=== PATIENT | male | born 1965 | race Caucasian/White ===

== ENCOUNTER → 2022-12-01 | Outpatient (CLI) | payer OTHER ==
[2022-12-02 02:18] LABS: HCT 46.4 % (39.6-50.0); MCH 34.9 pg (27.0-32.0); MCHC 34.5 g/dL (32.0-37.0); MCV 101.1 fL (80.0-97.0); Mean Platelet Volume 11.3 fL (9.5-12.2); NRBC Per 100 WBC 0 /100 WBCS (0.0-0.0); Platelet Count 169 X 10*3/uL (140-440); RBC 4.59 X 10*6/uL (4.40-5.60); RDW 13.1 % (11.5-14.5); WBC 7.84 X 10*3/uL (4.50-10.00)
[2022-12-02 03:21] LABS: ALT 53 U/L (10-49); AST 103 U/L (14-35); African American GFR (CKD) 115.2 (60.0-200.0); Albumin 4.4 g/dL (3.8-4.9); Albumin/Globulin Ratio 1.24 (1.60-3.17); Alkaline Phosphatase 87 U/L (41-126); BUN/Creat Ratio 7.45 Ratio (12.00-20.00); Blood Urea Nitrogen 5.9 mg/dL (9.0-27.0); Calcium 9.3 mg/dL (8.7-10.3); Carbon Dioxide 26.9 mmol/L (20.0-27.5); Chloride 100 mmol/L (96-109); Chol/HDL Ratio 3.71 Ratio; Globulin 3.5 g/dL (1.6-3.3); Glucose 82 mg/dL (70-110); LDL Cholesterol,Calculated 95.2 mg/dL (0.0-131.0); Non-African American GFR(CKD) 99.4 (60.0-200.0); Sodium 140 mmol/L (135-145); Total Protein 7.9 g/dL (6.2-8.2)
== END | disposition home or self-care (01) ==
LOC: LABWHC1 12:29
PROVIDERS: ATTEND Family Medicine
DX: Z00.01 Encounter for general adult medical examination with abnormal findings (principal); Z12.5 Encounter for screening for malignant neoplasm of prostate
CPT/HCPCS: 80061; 80053; 85027; 36415; G0103

== ENCOUNTER → 2023-01-13 | Outpatient (CLI) | payer OTHER ==
--- NOTE | 2023-01-13 08:53 | US ---
EXAMINATION TYPE: US abdomen limited DATE OF EXAM: 01/13/2023 COMPARISON: CT 2012 CLINICAL INDICATION: Male, 57 years old with history of R74.01 ELEVATED LIVER TRANSAMINASE; Elevated liver enzymes level. TECHNIQUE: Multiple sonographic images of the right upper quadrant are obtained. 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 Pancreas: Tail was not well seen. Liver: Appears coarse with increased echogenicity. Gallbladder: Appears wnl Evidence for sonographic Rodriguez's sign: No CBD: Portions seen appear wnl Right Kidney: No hydronephrosis or masses seen The visualized portions of the pancreas are unremarkable. The tail is obscured by overlying bowel gas . The liver demonstrates diffusely coarse echotexture with increased echogenicity. On cirrhotic morph ology. No focal lesion identified. Gallbladder appears within normal limits without evidence of jude lithiasis, wall thickening, or pericholecystic fluid. Per compliance aide, negative sonographic Rodriguez si gn. The visualized portions of the common bile duct are unremarkable. No hydronephrosis, nephrolithia sis or solid mass involving the right kidney. Cortical medullary differentiation is maintained. IMPRESSION: 1. No acute process. 2. Hepatic steatosis.
== END | disposition home or self-care (01) ==
LOC: RADUSWWP 07:38
PROVIDERS: ATTEND Family Medicine
DX: K76.0 Fatty (change of) liver, not elsewhere classified (principal); R74.01 Elevation of levels of liver transaminase levels
CPT/HCPCS: 76705

== ENCOUNTER → 2023-11-29 | Outpatient (CLI) | payer OTHER ==
[2023-11-29 15:56] LABS: Basophils # (A) 0.08 X 10*3/uL (0.00-0.10); Basophils % (A) 0.9 %; Eosinophils # (A) 0.06 X 10*3/uL (0.04-0.35); Eosinophils % (A) 0.7 %; HCT 46.3 % (39.6-50.0); HGB 16.2 g/dL (13.0-17.0); Lymphocytes % (A) 33.9 %; MCH 34.8 pg (27.0-32.0); MCV 99.4 FL (80.0-97.0); Monocytes # (A) 0.84 X 10*3/uL (0.20-1.00); Monocytes % (A) 9.2 %; NRBC Per 100 WBC 0 X 10*3/uL (0.00-0.01); Neutrophils # (A) 5.05 X 10*3/uL (1.80-7.70); Neutrophils % (A) 55.1 %; Platelet Count 188 X 10*3/uL (140-440); RBC 4.66 X 10*6/uL (4.40-5.60); RDW 12.5 % (11.5-14.5); WBC 9.15 X 10*3/uL (4.50-10.00)
[2023-11-29 20:48] LABS: ALT 61 U/L (10-49); AST 137 U/L (14-35); Albumin 4.3 g/dL (3.8-4.9); Alkaline Phosphatase 81 U/L (41-126); BUN/Creat Ratio 7.57 Ratio (12.00-20.00); Blood Urea Nitrogen 5.3 mg/dL (9.0-27.0); Calcium 9.3 mg/dL (8.7-10.3); Carbon Dioxide 20.8 mmol/L (21.6-31.8); Chloride 100 mmol/L (96-109); Globulin 3.3 g/dL (1.6-3.3); Glucose 115 mg/dL (70-110); Potassium 3.5 mmol/L (3.5-5.5); Sodium 139 mmol/L (135-145); Total Bilirubin 0.5 mg/dL (0.3-1.2); Total Protein 7.6 g/dL (6.2-8.2)
== END | disposition home or self-care (01) ==
LOC: LABWHC1 13:34
PROVIDERS: ATTEND Family Medicine
DX: R53.83 Other fatigue (principal)
CPT/HCPCS: 36415; 80053; 85025

== ENCOUNTER → 2023-12-01 | Outpatient (CLI) | payer OTHER ==
[2023-12-02 02:39] LABS: Basophils # (A) 0.06 X 10*3/uL (0.00-0.10); Basophils % (A) 0.7 %; Eosinophils # (A) 0.04 X 10*3/uL (0.04-0.35); Eosinophils % (A) 0.5 %; HCT 46.2 % (39.6-50.0); HGB 15.7 g/dL (13.0-17.0); Lymphocytes # (A) 1.93 X 10*3/uL (0.90-5.00); Lymphocytes % (A) 22.6 %; MCH 34.8 pg (27.0-32.0); MCV 102.4 FL (80.0-97.0); Mean Platelet Volume 11.9 FL (9.5-12.2); Monocytes # (A) 0.93 X 10*3/uL (0.20-1.00); Monocytes % (A) 10.9 %; NRBC Per 100 WBC 0 X 10*3/uL (0.00-0.01); Neutrophils # (A) 5.56 X 10*3/uL (1.80-7.70); Neutrophils % (A) 65.1 %; Platelet Count 182 X 10*3/uL (140-440); RBC 4.51 X 10*6/uL (4.40-5.60); RDW 12.8 % (11.5-14.5); WBC 8.54 X 10*3/uL (4.50-10.00)
[2023-12-02 03:22] LABS: ALT 51 U/L (10-49); AST 82 U/L (14-35); Albumin 4.4 g/dL (3.8-4.9); Albumin/Globulin Ratio 1.29 Ratio (1.60-3.17); Alkaline Phosphatase 83 U/L (41-126); Calcium 9.9 mg/dL (8.7-10.3); Carbon Dioxide 25.4 mmol/L (21.6-31.8); Chloride 103 mmol/L (96-109); Globulin 3.4 g/dL (1.6-3.3); Glucose 94 mg/dL (70-110); Potassium 3.8 mmol/L (3.5-5.5); Sodium 143 mmol/L (135-145); Total Bilirubin 0.6 mg/dL (0.3-1.2); Total Protein 7.8 g/dL (6.2-8.2)
== END | disposition home or self-care (01) ==
LOC: LABWHC1 16:30
PROVIDERS: ATTEND Family Medicine
DX: R53.83 Other fatigue (principal)
CPT/HCPCS: 36415; 80053; 85025

== ENCOUNTER → 2023-12-06 | Outpatient (CLI) | payer OTHER ==
--- NOTE | 2023-12-07 19:15 | US ---
EXAMINATION TYPE: US scrotum with doppler. Grayscale and color Doppler Duplex imaging performed of t he scrotum. DATE OF EXAM: 12/06/2023 COMPARISON: NONE CLINICAL INDICATION: Male, 58 years old with history of N50.89 OTHER SPECIFIED DISORDERS OF THE MALE GENIT; Lump in left groin x 1 week with no pain.. Hx of testicular cancer with right orchiectomy 20 y ears ago EXAM MEASUREMENTS: TESTICLES: Right Testicle: Surgically removed Left Testicle: 4.1 x 2.4 x 1.5 cm EPIDIDYMIS HEAD: Right Epididymis: Surgically removed Left Epididymis: 1.2 cm Doppler performed to assess for testicular vascularity; good bilateral color flow and waveforms are s een. There is no evidence of testicular torsion. Presence of hydroceles: No Presence of varicoceles: No Hypoechoic area seen in left groin adjacent to penis and superior to scrotum measuring 0.6 x 0.3 x 0. 2cm. There is no blood flow seen in this area. IMPRESSION: 1. Small hypoechoic area within the subcutaneous tissues at the area of concern. This is nonspecific. 2. Left testicle and epididymis appear normal.
== END | disposition home or self-care (01) ==
LOC: RADUSWWP 16:07
PROVIDERS: ATTEND Family Medicine
DX: N50.89 Other specified disorders of the male genital organs (principal)
CPT/HCPCS: 76870; 93975; 93976

== ENCOUNTER → 2024-01-03 | Outpatient (CLI) | payer OTHER ==
[2024-01-03 18:24] LABS: HCT 44.4 % (39.6-50.0); HGB 15.3 g/dL (13.0-17.0); MCH 34.9 pg (27.0-32.0); MCHC 34.5 g/dL (32.0-37.0); MCV 101.1 FL (80.0-97.0); Mean Platelet Volume 11.3 FL (9.5-12.2); NRBC Per 100 WBC 0 X 10*3/uL (0.00-0.01); Platelet Count 193 X 10*3/uL (140-440); RBC 4.39 X 10*6/uL (4.40-5.60); RDW 12.4 % (11.5-14.5); WBC 8.95 X 10*3/uL (4.50-10.00)
[2024-01-03 19:28] LABS: Amylase 61 U/L (23-121); Chol/HDL Ratio 3.63 Ratio; LDL Cholesterol,Calculated 97.2 mg/dL (0.0-131.0); Lipase 62 U/L (14-60)
== END | disposition home or self-care (01) ==
LOC: LABWHC1 15:33
PROVIDERS: ATTEND Family Medicine
DX: Z00.01 Encounter for general adult medical examination with abnormal findings (principal)
CPT/HCPCS: 36415; 80061; 82150; 83690; 84153; 85027

== ENCOUNTER → 2024-01-24 | Outpatient (CLI) | payer OTHER ==
--- NOTE | 2024-01-24 22:12 | US ---
EXAMINATION TYPE: US abdomen complete DATE OF EXAM: 01/24/2024 COMPARISON: NONE CLINICAL INDICATION: Male, 58 years old with history of R10.11 RUQ PAIN; pain TECHNIQUE: Multiple sonographic images of the abdomen are obtained. FINDINGS: EXAM MEASUREMENTS: Liver Length: 16.7 cm Gallbladder Wall: .2 cm CBD: .9 cm Spleen: obscured by bowel gas. Right Kidney: 10.2 x 5.4 x 4.8 cm Left Kidney: 11.4 x 5.9 x 4.7 cm GALLEY WORKER NOTES: Pancreas: Tail obscured by overlying bowel gas Liver: Increased attenuation hypoechoic area seen 1.2 x .7 x 1.4 cm small hepatic cyst may be presen t. Follow-up recommended Gallbladder: No stones seen Evidence for sonographic Rodriguez's sign: no CBD: dilated Spleen: Obscured by overlying bowel gas Right Kidney: No hydronephrosis or masses seen Left Kidney: No hydronephrosis or masses seen Upper IVC: wnl Abd Aorta: wnl IMPRESSION: 1. Borderline hepatomegaly. There may be a hepatic cyst. Other etiologies are not excluded. Follow-up ultrasound in 3-6 months is recommended
== END | disposition home or self-care (01) ==
LOC: RADUSWWP 07:33
PROVIDERS: ATTEND Family Medicine
DX: R10.11 Right upper quadrant pain (principal); R16.0 Hepatomegaly, not elsewhere classified
CPT/HCPCS: 76700

== ENCOUNTER 2024-03-28 08:01 | Day surgery (SDC) | payer OTHER ==
[~2024-03-28 08:01] MED LIST: LACTATED RINGERS 1,000 ML IV SCH
[2024-03-28 08:23] VITALS: TEMP 98.2
[2024-03-28] MEDS: IV FLUID CONTINUATION 1,000 ML IV ONE (08:23)
[2024-03-28] MEDS: MIDAZOLAM 2 MG/2 ML VIAL IV ONE (08:48)
[2024-03-28] MEDS ORDERED: LIDOCAINE 1% INJ 10MG/ML (20 ML MDV) ONE (08:49)
[2024-03-28] MEDS ORDERED: PROPOFOL 10 MG/ML 20 ML VIAL IV ONE (08:49)
--- NOTE | 2024-03-28 09:13 | P.PCN ---
Date of Procedure: 03/28/24 Procedure(s) Performed: Brief history: Patient is a pleasant 58-year-old white male scheduled for an elective upper endoscopy as well as colonoscopy as a part of evaluation of chronic epigastric pain, intermittent nausea, abdominal pain and change in bowel habits for the last 3 months duration. Has 3-4 loose watery bowel movements daily but no bleeding. He last 15 pounds since onset of the symptoms. Procedure performed: Esophagogastroduodenoscopy with biopsy Colonoscopy with biopsy and snare polypectomy. Preoperative diagnosis: Abdominal pain, nausea Chronic diarrhea and progressive weight loss Anesthesia: MAC Procedure: After informed consent was obtained from the patient was brought into the endoscopy unit and IV sedation was administered by anesthesia under continuous monitoring. Initially upper endoscopy was done. The Olympus GF 160 video endoscope was inserted inserted into the mouth and esophagus intubated without any difficulty and was gradually advanced into the stomach and duodenum and carefully examined. The bulb and second part of the duodenum appeared normal. Biopsies were done from the duodenum to rule out celiac disease the scope was then withdrawn into the stomach adequately insufflated with air and upon careful examination the antrum and body, had mild gastritis and biopsies were done from this area. Mucosa of the cardia and fundus appeared normal. The scope was then withdrawn into the esophagus. Small hiatal hernia noted. The GE junction was located at 40 cm to the incisors. It appeared regular with no erythema erosions or ulcerations. Rest of the esophagus appeared normal. Patient tolerated the procedure well. At this time the patient continued to remain sedation. Initial digital rectal examination was normal. Olympus CF 160 video colonoscope was then inserted into the rectum and gradually advanced to the cecum without any difficulty. Careful examination was performed as the scope was gradually being withdrawn. The prep was excellent. The cecum, ascending colon, appeared normal. In the transverse colon there was a 5 mm polyp that was removed by cold snare polypectomy. Rest of the transverse colon, descending colon, sigmoid colon and rectum appeared normal. The mid rectum there was a 1.2 cm broad-based polyp removed by snare polypectomy. Biopsies were done from the ascending and descending colon to rule out microscopic/collagenous colitis. Retroflexion was performed in the rectum and no lesions were noted. Patient tolerated the procedure well. Impression: 1. Upper endoscopy revealed mild antral gastritis and small hiatal hernia 2. Colonoscopy revealed 5 mm transverse colon polyp status post cold snare polypectomy and 1.2 cm mid rectal polyp status post snare polypectomy. Recommendations: Findings of this examination were discussed with the patient as well as his family. He was advised to follow with the biopsy results. If the biopsy reveals adenoma, recommended repeat colonoscopy in 3 years
[2024-03-28 09:46] VITALS: BP 153/90; PULSE 71; RESP 16
== END 2024-03-28 09:46 | disposition home or self-care (01) ==
LOC: ORWHC2ENDO 08:01
PROVIDERS: ATTEND Internal Medicine Gastroenterology
DX: D12.3 Benign neoplasm of transverse colon (principal); D12.8 Benign neoplasm of rectum; K29.50 Unspecified chronic gastritis without bleeding; K44.9 Diaphragmatic hernia without obstruction or gangrene; K52.9 Noninfective gastroenteritis and colitis, unspecified; F17.210 Nicotine dependence, cigarettes, uncomplicated; Z85.47 Personal history of malignant neoplasm of testis
CPT/HCPCS: 88305; 45380; 45385; 43239; J2250; J2001; J2704

== ENCOUNTER → 2024-10-25 | Outpatient (CLI) | payer OTHER ==
--- NOTE | 2024-10-25 15:32 | XR ---
EXAMINATION TYPE: XR lumbar spine 3V DATE OF EXAM: 10/25/2024 1:33 PM COMPARISON: None CLINICAL INDICATION: Male, 58 years old with history of R29.898 OTHER SYMPTOMS AND SIGNS INVOLVING TH E MUSCULOSKELTA; PHH, pain FINDINGS: Moderate multilevel disc disease with narrowed and desiccated discs and endplate spondylosis. Hypertr ophic facet arthropathy mid to lower lumbar spine. Trace grade 1 retrolisthesis L2-L3. Remaining alig nment is maintained. Vertebral body heights are preserved. IMPRESSION: 1. Moderate multilevel degenerative disc disease. Hypertrophic facet arthropathy throughout. 2. Degenerative trace grade 1 retrolisthesis L2-L3. 3. No vertebral compression collapse or malalignment. [facility], , 10/25/2024 3:29 PM
[2024-10-25 15:36] LABS: HCT 44.5 % (39.6-50.0); MCH 34.6 pg (27.0-32.0); MCHC 33.7 g/dL (32.0-37.0); MCV 102.5 FL (80.0-97.0); Mean Platelet Volume 10.9 FL (9.5-12.2); NRBC Per 100 WBC 0 X 10*3/uL (0.00-0.01); Platelet Count 182 X 10*3/uL (140-440); RBC 4.34 X 10*6/uL (4.40-5.60); RDW 13.9 % (11.5-14.5); WBC 5.95 X 10*3/uL (4.50-10.00)
[2024-10-25 19:27] LABS: ALT 39 U/L (10-49); AST 117 U/L (14-35); Albumin/Globulin Ratio 1.21 Ratio (1.60-3.17); Alkaline Phosphatase 74 U/L (41-126); BUN/Creat Ratio 7.86 Ratio (12.00-20.00); Blood Urea Nitrogen 5.5 mg/dL (9.0-27.0); Calcium 8.9 mg/dL (8.7-10.3); Carbon Dioxide 21.7 mmol/L (21.6-31.8); Chloride 103 mmol/L (96-109); Chol/HDL Ratio 3.45 Ratio; Globulin 3.3 g/dL (1.6-3.3); Glucose 129 mg/dL (70-110); Potassium 3.3 mmol/L (3.5-5.5); Prostate Specific Antigen 0.61 ng/mL (0.000-3.500); Sodium 140 mmol/L (135-145); Total Bilirubin 0.5 mg/dL (0.3-1.2); Total Protein 7.3 g/dL (6.2-8.2)
== END | disposition home or self-care (01) ==
LOC: LABWHC1 11:23
PROVIDERS: ATTEND Family Medicine
DX: Z00.01 Encounter for general adult medical examination with abnormal findings (principal); G62.9 Polyneuropathy, unspecified; M43.16 Spondylolisthesis, lumbar region; M47.816 Spondylosis without myelopathy or radiculopathy, lumbar region; M51.360 Other intervertebral disc degeneration, lumbar region with discogenic back pain only; R29.898 Other symptoms and signs involving the musculoskeletal system
CPT/HCPCS: 36415; 72100; 80053; 80061; 82607; 82728; 84153; 85027